=== PATIENT | female | born 1965 | race Caucasian/White ===

== ENCOUNTER 2019-09-22 12:13 | Outpatient (CLI) | payer OTHER ==
--- NOTE | 2019-09-22 12:32 | RAD ---
TWO VIEWS LUMBAR SPINE: INDICATION: Back pain. COMPARISON: None. FINDINGS: There is grade 1 anterolisthesis of L4 and L5. No discrete pars fracture is evident. There is a moder ate to severe facet arthrosis at L3-4 and L4-5. There is moderate disc degenerative disease at L3-4 through L5-S1. No acute fracture is evident. There is slight rightward curvature of the lumbar spine centered at L2. IMPRESSION: [id number] spondylosis of the lumbar spine. Grade 1 anterolisthesis of L4 on L5. No definite pa rs defect is evident. Oblique views or CT evaluation may be helpful for further characterization. Transcribed Date/Time: 09/22/2019 1:03 PM
== END 2019-09-22 12:14 | disposition home or self-care (01) ==
LOC: BICRAD 12:13
PROVIDERS: ATTEND Internal Medicine Rheumatology
DX: M54.5 Low back pain (principal); M47.816 Spondylosis without myelopathy or radiculopathy, lumbar region; M43.16 Spondylolisthesis, lumbar region
CPT/HCPCS: 72100

== ENCOUNTER 2020-06-16 08:53 | Outpatient (CLI) | payer BC ==
--- NOTE | 2020-06-16 09:35 | ULT ---
Right upper quadrant ultrasound: 06/16/2020 COMPARISON: None HISTORY: Elevated liver function tests TECHNIQUE: Multiplanar grayscale sonographic imaging of the right upper quadrant provided. FINDINGS: Imaged portions of the pancreas appear grossly unremarkable. The pancreas is partially obsc ured by bowel gas. The hepatic parenchyma is heterogeneous and echogenic suggesting hepatic steatosis. This limits asses sment for focal liver lesion and intrahepatic biliary dilatation. The furnace filler reports a negative Victoria's sign. No gallbladder wall thickening or pericholecystic f luid. Body habitus and right upper quadrant shadowing limits detailed assessment of the contents of the gallbladder. Echogenic material is seen within the gallbladder suggesting possible small volume s mall noncalcified stones or sludge. This is along the posterior wall of the gallbladder. Incomplete distention of the gallbladder as well as shadowing from adjacent bowel gas further limits assessment. The common bile duct measures 4 mm, within normal limits. Right kidney measures 12.2 cm in craniocaudal dimension and demonstrates no stone, hydronephrosis, or mass lesion. IMPRESSION: 1. Findings suggesting hepatic steatosis 2. Suboptimal assessment of the gallbladder as detailed above.
== END 2020-06-16 08:54 | disposition home or self-care (01) ==
LOC: SCSULT 08:53
PROVIDERS: ATTEND Internal Medicine Rheumatology
DX: R74.8 Abnormal levels of other serum enzymes (principal)
CPT/HCPCS: 76705